=== PATIENT | female | born 1980 | race Caucasian/White ===

== ENCOUNTER 2025-02-27 12:01 | Outpatient (CLI) | payer OTHER, SELFPAY ==
--- NOTE | ~2025-02-27 | US_ITS ---
EXAMINATION: US pelvic complete w TV, 02/27/2025 12:09 TRACK SUPERVISOR HISTORY: abnormal uterine and vaginal bleeding Comparison: None Technique: Enriquez-scale and color Doppler images were obtained. Findings: Uterus: Uterus anteverted 7.6 x 4.3 x 4.1 cm. . Endometrium 8 mm. Right Ovary:Right ovary 3 x 2 x 2.3 cm, no adnexal mass, normal flow. Left Ovary: Left ovary 3 x 2.2 x 2 cm, no adnexal mass, normal flow. Free Fluid: None Impression: No etiology to explain the patient's bleeding. Reviewed, dictated and finalized at location P. K SUPERVISOR Impression: No etiology to explain the patient's bleeding.
--- OUTSIDE RECORDS SUMMARY | 2025-02-27 14:33 | XMS_ITS | Clinical Summary ---
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 This disclosure is being madepursuant to the Care Everywhere program and may not contain all information available regarding this patient. Last updated 17.[facility] Allergies Active Allergy Reactions Criticality Noted Date Comments Metronidazole Itching 05/25/2017 Morphine Vomiting 09/12/2018 Sulfa Drugs Anaphylaxis High 05/25/2017 Medications * Be aware that medications may not be up to date on this document. Alwaysverify current medications with the patient. celecoxib (CELEBREX) 200 MG capsule Take 200 mg by mouth once daily Active clonazePAM (KLONOPIN) 1 MG tablet Take 1 mg by mouth 2 times daily Active OXCARBAZEPINE PO Take 450 mg by mouth once daily 150 mg in the morning 300 mg in the evening Active buprenorphine-n aloxone (SUBOXONE) 8-2 MG tablet Dissolve 2 tablets under the tongue once daily Active Naloxone HCl (NARCAN NA) [place] into the nose as needed Active ascorbic acid (VITAMIN C) 125 MG TABS half tablet Take by mouth once daily Active Biotin w/ Vitamins C & E (HAIR SKIN & NAILS GUMMIES PO) Take by mouth once daily Active HYDROcodone-tim taminophen (NORCO) 5-325 MG tablet Take 1 (one) tablet to 2 (two) tablets by mouth every 6 hours as needed for Pain 15 tablet 02/02/2021 Active traMADol (ULTRAM) 50 MG tablet Take 1 (one) tablet by mouth every 4 hours as needed for Pain 15 tablet 02/02/2021 Active Immunizations Immunization Administration Dates Next Due Jackelineandrea Fadi primary monoval ent 12+ yr 0.3mL Purple cap 09/11/2020,08/21/2020 FLU VACCINE QUAD IIV4 SPLIT 0.25 ML IM 8,01/30/2017 MMR 09/06/2018 TDAP (7yrs+) 02/15/2018,01/30/2017 Social History Tobacco Use Types Packs/Day Years Used Date Smoking Tobacco: Former Cigarettes 0 Q uit: 01/2017 Smokeless Tobacco: Never Tobacco Cessation:Counseling Given: Yes Alcohol Use Standard Drinks/Week Comments No 0 (1 standard drink = 0.6 oz pur e alcohol) Comments No Sex and Gender Information Value Date Recorded Sex Assigned at Not on file 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 Gender Identity Not on file Sexual Orientation Not on file Last Filed Vital Signs Vital Sign Reading Time Taken Comments Blood Pressure 100/54 03/10/2021 9:21 AM COLLEGE TEACHER Pulse 66 03/10/2021 9:21 AM COLLEGE TEACHER Temperature 36.8 C (98.2 F) 03/10/2021 9:21 AM COLLEGE TEACHER Respiratory Rate 16 02/02/2021 12:45 PM CDT Oxygen Saturation 99% 03/10/2021 9:21 AM COLLEGE TEACHER Inhaled Oxygen Concentration - - Weight 61.3 kg (135 lb 4 oz) 03/10/2021 9:21 AM COLLEGE TEACHER Height 180.3 cm (5' 11) 03/10/2021 9:21 AM COLLEGE TEACHER Body Mass Index 18.86 03/10/2021 9:21 AM COLLEGE TEACHER Plan of Treatment Health Maintenance Due Date Last Done Comments COLOGUARD (AGES 45-75) - COL ON CA SCREENING 1980 COLON MONITORING 1980 COLONOSCOPY - COLON CA SCREENING 1980 CT COLONOGRAPHY - COLON CA SCREENING 1980 Colorectal Cancer Screening 1980 FIT - COLON CA SCREENING 1980 FLEX SIG - COLON CA SCREENING 1980 LIPID TESTING 1980 MAMMOGRAM 1980 HIV SCREENING 01/10/1995 HEPATITIS C SCREENING 01/06/1998 HEPATITIS B VACCINE (1 of 3 - 19+ 3-dose series) 01/10/1999 PAP SMEAR 01/10/2001 HPV VACCINE (1 - 3-dose SCDM series) 01/10/2007 Cervical Cancer Screening 01/10/2010 PAP with HPV 01/10/2010 DEPRESSION SCREENING 04/10/2024 COVID-19 VACCINE (3 - 2024-2 6 season) 2024 09/11/2020, 08/21/2020 INFLUENZA VACCINE (#1) 2024 8, 01/30/2017 DTAP/TDAP/TD VACCINES (3 - T d or Tdap) 02/16/2028 02/15/2018, 01/30/2017 ZOSTER VACCINE (1 of 2) 01/10/2030 HIB VACCINE Aged Out No longer eligi ble based on patient's age to complete this topic MENINGOCOCCAL (Group B) VACCINE SHARED DECISION-MAKING Aged Out No longer eligible based on patient's age to complete this topic MENINGOCOCCAL GROUPS A/C/Y/W VACCINE Aged Out No longer eligible b ased on patient's age to complete this topic PNEUMOCOCCAL VACCINE Aged Out No long er eligible based on patient's age to complete this topic Medical Devices Implanted Type Area Wheel Tuner Device Identifier Shelf Expiration Date Model / Serial / Lot Patch Srg Sgprg Opn Bioresbl Slf Xpd Implanted:Qty: 1 on 10/23/2018 by Arabella Villa MD at [facility] N/A: Umb[employer] 08/05/2020 [id number] / / [id number] Sys Fx 37cm Cpsr Str Ss Peek Perm Hndl Implanted:Qty: 1 on 02/02/2021 by Arabella Villa MD at [facility] Inguinal [employer] 09/04/2022 [id number] / / [id number] Mesh Srg Prln 6x6in Flt Sq Cstm Knit Implanted:Qty: 1 on 02/02/2021 by Arabella Villa MD at [facility] Left: Inguinal [employer] 02/07/2025 PMH / / [id number] Mesh Srg Prln 6x6in Flt Sq Cstm Knit Implanted:Qty: 1 on 02/02/2021 by Arabella Villa MD at [facility] Right: Inguinal [employer] 02/07/2025 PMH / / [id number] Insurance [facility] Care Teams Stud Dairy Cattle Farmer Relationship Specialty Start Date End Date Tory Dillon APRN-TERESSA [address] [place] [id number] PCP - General Nurse Practitioner Family 01/13/21
--- OUTSIDE RECORDS SUMMARY | 2025-02-27 14:33 | XMS_ITS | Clinical Summary ---
Author Organization [facility] Address [address] [place] [id number] Care Team Providers Care Timing Machine Operator Name Role Phone Willis Pinto MD Primary Care Provider Allergies Active Allergy Reactions Criticality Noted Date Comments Ceftriaxone Hives Medium 02/02/2023 Morphine Hives Medium 02/02/2023 Sulfa Hives Medium 02/02/2023 Azithromycin Hives Medium 02/02/2023 Medications OXcarbazepine (TRILEPTAL) 300 mg tablet Take 1 tablet (300 mg total) by mouth 2 (two) times a day Active progesterone (PROMETRIUM) 200 mg capsule Take 1 capsule (200 mg total) by mouth daily 04/10/1969 Active buprenorphine-n aloxone (SUBOXONE) 8-2 mg per SL tablet Place 2 tablets under the tongue daily Active guaiFENesin ER (MUCINEX) 600 mg 12 hr tablet Take 1 tablet (600 mg total) by mouth 2 (two) times a day as needed for cough for up to 10 days 20 tablet 02/07/2023 Active Active Problems Problem Noted Date Diagnosed Date Vaping nicotine dependence, non-tobacco product 02/03/2023 Hyponatremia 02/03/2023 Bipolar disorder 02/03/2023 Sepsis without acute organ d ysfunction, due to unspecified organism 02/02/2023 Immunizations Immunization Administration Dates Next Due Influenza, Quadrivalent, Spl it, Preservative Free, Intramuscular 02/07/2023 Medical History Medical History Date Comments Diverticulitis Social History Tobacco Use Types Packs/Day Years Used Date Smoking Tobacco: Former Cigarettes Tobacco Cessation:Counseling Given: Not Answered Alcohol Use Standard Drinks/Week Comments Not Currently 0 (1 standard drink = 0.6 oz pur e alcohol) Personal Safety Answer Date Recorded Have you ever been in or are you currently in a harmful physical or emotional relationship or is someone making you feel afraid or unsafe? 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 Gender Identity Not on file Sexual Orientation Not on file Last Filed Vital Signs Vital Sign Reading Time Taken Comments Blood Pressure 111/62 02/07/2023 10:57 AM CDT Pulse 93 02/07/2023 10:57 AM CDT Temperature 36.2 C (97.2 F) 02/07/2023 10:57 AM CDT Respiratory Rate 18 02/07/2023 10:57 AM CDT Oxygen Saturation 93% 02/07/2023 10:57 AM CDT Inhaled Oxygen Concentration - - Weight 65 kg (143 lb 6.4 oz) 02/02/2023 2:42 PM CDT Height 180.3 cm (5' 11) 02/02/2023 2:42 PM CDT Body Mass Index 20 02/02/2023 2:42 PM CDT Plan of Treatment Health Maintenance Due Date Last Done Comments Breast Cancer Screening-Mammogram 1980 Colon Cancer Screening-Colonoscopy 1980 Depression Screening 1980 Hepatitis C Screening 1980 Varicella Vaccines (1 of 2 - 13+ 2-dose series) 01/10/1993 Hepatitis B Screening 01/10/1998 Regular Well Visit/Exam 18-64 01/10/1998 HPV Vaccines (1 - 3-dose SCD M series) 01/10/2007 Influenza Vaccine (#1) 2024 3, 01/18/2018, 01/30/2017 DTaP/Tdap/Td Vaccine (3 - Td or Tdap) 02/16/2028 02/15/2018, 01/30/2017 Pneumococcal vaccine <65 Aged Out No longer eligible based on patient's age to complete this topic Insurance [facility] Advance Directives For more information, please contact: [phone] * Full Code (Latest Code Status on File) Date Activated Date Inactivated Comments 02/02/2023 2:46 PM 02/07/2023 5:38 PM Care Teams Timing Machine Operator Relationship Specialty Start Date End Date Willis Pinto MD PCP - General Obstetrics and Gynecology 04/26/18
== END 2025-02-27 12:02 | disposition home or self-care (01) ==
PROVIDERS: PCP Physician Assistant; Visit Provider Nurse Practitioner Women's Health
DX: N93.9 Abnormal uterine and vaginal bleeding, unspecified (principal)
CPT/HCPCS: 76830; 76856